=== PATIENT | male | born 1975 | race Caucasian/White ===

== ENCOUNTER 2017-08-03 02:17 | Emergency (ER) | payer SELFPAY ==
[~2017-08-03] VITALS: Ht 170.2 cm; Wt 59.7 kg
[2017-08-03 02:48] LABS: HEMATOCRIT 51.1 % (38.0-50.0); HEMOGLOBIN 17.9 G/DL (12.5-16.6); MCH 31.9 PG (29.0-34.0); MCV 90.9 FL (86-99); PLATELET COUNT 174 K/uL (156-360); RBC DIS.WIDTH-CV 13.5 % (11.8-14.6); RBC DIS.WIDTH-SD 45.5 % (39-53); RED BLOOD COUNT 5.62 M/uL (4.00-5.50); WHITE BLOOD COUNT 8.2 K/uL (4.1-10.2)
[2017-08-03 02:59] LABS: ALBUMIN 4.8 g/dL (3.2-4.8); CHLORIDE 107 mEq/L (99-109); POTASSIUM 4.8 mEq/L (3.7-5.4); SODIUM 145 mEq/L (136-147)
[2017-08-03 03:02] LABS: GLUCOSE 84 mg/dL (70-99)
[2017-08-03 03:04] LABS: TOTAL BILIRUBIN 0.2 mg/dL (0.0-1.0)
[2017-08-03 03:04] LABS: AMPHETAMINE NEGATIVE (500 ng/mL); BARBITURATES NEGATIVE (200 ng/mL); BENZODIAZEPINES NEGATIVE (150 ng/mL); BUPRENORPHINE NEGATIVE (10 ng/mL); COCAINE NEGATIVE (150 ng/mL); METHADONE NEGATIVE (200 ng/mL); METHAMPHETAMINE NEGATIVE (500 ng/mL); OPIATES (MORPHINE) NEGATIVE (100 ng/mL); OXYCODONE NEGATIVE (100 ng/mL); PHENCYCLIDINE NEGATIVE (25 ng/mL); PROPOXYPHENE NEGATIVE (300 ng/mL); THC CANNABINOIDS NEGATIVE (50 ng/mL); TRICYCLIC ANTIDEPRESSANTS NEGATIVE (300 ng/mL)
[2017-08-03 03:05] LABS: ALKALINE PHOSPHATASE 82 IU/L (3-129); CREATININE 0.9 mg/dL (0.6-1.3); GFR ESTIMATE (CALCULATED) > 59 mL/min/ (58.99-99999); SERUM ETHYL ALCOHOL 423 mg/dL
[2017-08-03 03:07] LABS: AST (GOT) 37 IU/L (2-34); UREA NITROGEN (BUN) 12 mg/dL (9-23)
[2017-08-03 03:08] LABS: ALT (GPT) 28 IU/L (3-49)
[2017-08-03 03:40] LABS: DEVICE 980VENT; FI02 100 %; MECHANICAL RATE 16 resp/min; MODE AC; PCO2 35 mm Hg (35-45); PEEP 5 CM/H20; PO2 596 mm Hg (80-100); TIDAL VOLUME 500 ML; TOTAL RESP RATE 16 resp/min; pH 7.38 (7.35-7.45)
[2017-08-03 03:41] LABS: BICARBONATE 20.7 mEq/L (22-26); COMMENTS - BLOOD GASES C+A+; O2 SATURATION (CALCULATED) 99.9 % (95-99); SITE RR
[2017-08-03 10:27] VITALS: BP 114/50
== END 2017-08-03 10:31 | disposition home or self-care (01) ==
LOC: EME → TRA 02:17 → EDBD 02:17 → TRA 10:31
PROVIDERS: Emergency Medicine
PROC: 0BH17EZ Insertion of Endotracheal Airway into Trachea, Via Natural or Artificial Opening (ICD-10-PCS; principal; 2017-08-03)
DX: S00.03XA Contusion of scalp, initial encounter (principal); F10.129 Alcohol abuse with intoxication, unspecified; R45.1 Restlessness and agitation; Y90.8 Blood alcohol level of 240 mg/100 ml or more; W18.31XA Fall on same level due to stepping on an object, initial encounter; Y93.01 Activity, walking, marching and hiking; Y92.007 Garden or yard of unspecified non-institutional (private) residence as the place of occurrence of the external cause; Z88.0 Allergy status to penicillin; F17.200 Nicotine dependence, unspecified, uncomplicated
CPT/HCPCS: 36600; 70450; 71045; 71260; 72125; 73130; 73610; 74177; 80053; 82803; 85027; 86850; 86900; 86901; 87070; 87205; 94002; 99281; 99285; G0480; J2704